=== PATIENT | male | born 1970 | race Caucasian/White ===

== ENCOUNTER 2020-08-23 11:49 | Emergency (ER) | payer OTHER ==
[~2020-08-23] VITALS: Ht 175.3 cm; Wt 136.0 kg
[2020-08-23] MEDS ORDERED: CLOPIDOGREL75 MG PO (12:54)
[2020-08-23] MEDS ORDERED: BISOPROL PO (12:54)
[2020-08-23] MEDS ORDERED: HYDROCHLOROTH12.5 M1 PO (12:56)
[2020-08-23 14:01] VITALS: BP 132/78
== END 2020-08-23 14:07 | disposition home or self-care (01) | DRG 605 ==
LOC: ED 11:49
DX: S50.312A Abrasion of left elbow, initial encounter (principal); S80.12XA Contusion of left lower leg, initial encounter; I10 Essential (primary) hypertension; I42.9 Cardiomyopathy, unspecified; V23.4XXA Motorcycle driver injured in collision with car, pick-up truck or van in traffic accident, initial encounter; Z98.890 Other specified postprocedural states